=== PATIENT | female | born 2000 | race Two or more races ===

== ENCOUNTER 2021-07-09 16:13 | Emergency (ER) | payer OTHER ==
[~2021-07-09] VITALS: Ht 157.5 cm; Wt 46.3 kg
--- NOTE | 2021-07-09 17:43 | NUR ---
PATIENT COVID ANTIGEN (+)
[2021-07-09 18:50] VITALS: BP 122/70
--- NOTE | 2021-07-09 19:18 | NUR ---
MEDICALLY CLEARED. DISCHARGE TO PD IN STABLE CONDITION.
== END 2021-07-09 19:18 | disposition home or self-care (01) ==
LOC: EDSEX 16:15 → ER 16:15
DX: U07.1 COVID-19 (principal)
CPT/HCPCS: 87426; 99283; C9803